=== PATIENT | male | born 1965 ===

== ENCOUNTER 2017-11-30 11:03 | Outpatient (CLI) | payer OTHER ==
--- NOTE | 2017-11-30 12:01 | Diagnostic Imaging Report ---
Indications: Persistent sinusitis Technique: Spiral images obtained through the facial bones. No IV contrast utilized. Multiplanar reconstructions were generated.Total dose length product mGycm. CTDIvol(s) mGy. Dose reduction achieved using automated exposure control Comparison: none Findings: Small mucous retention cyst versus polyp is seen in the floor of the left maxillary sinus. The sinuses are otherwise clear. There is mild leftward nasal septal deviation. The maxillary ostia are patent. No acute fractures. There are some dental caries incidentally noted. The optic globes and orbits are unremarkable. The visualized intracranial structures are unremarkable. Impression: Small left maxillary sinus mucous retention cyst versus polyp. Otherwise unremarkable sinuses Minimal leftward nasal septal deviation The CT scanner at [facility] is accredited by the [employer] and the scans are performed using protocols designed to limit radiation exposure to as low as reasonably achievable to attain images of sufficient resolution adequate for diagnostic evaluation.
== END 2017-11-30 13:03 | disposition home or self-care (01) ==
LOC: CAT 11:03
DX: J34.1 Cyst and mucocele of nose and nasal sinus (principal); J34.2 Deviated nasal septum
CPT/HCPCS: 70486